=== PATIENT | male | born 1955 | race Caucasian/White ===

== ENCOUNTER 2016-04-27 15:16 | Outpatient (CLI) | payer BC | END 2016-04-27 15:17 | disposition home or self-care (01) | DX: S90.32XS Contusion of left foot, sequela (principal) ==

== ENCOUNTER 2017-10-18 10:02 | Outpatient (CLI) | payer BC ==
[2017-10-18 17:45] LABS: BASOPHILS % (AUTO) 0.7 %; EOSINOPHILS # (AUTO) 0.2 10^3/uL (0.0-0.7); EOSINOPHILS % (AUTO) 2.8 %; HGB - HEMOGLOBIN 13.5 g/dL (14.0-18.0); LYMPHOCYTES # (AUTO) 1.5 10^3/uL (1.5-3.5); LYMPHOCYTES % (AUTO) 27.7 %; MEAN CORPUSCULAR HEMOGLOBIN 27.6 pg (27.0-31.0); MEAN CORPUSCULAR HGB CONC 33.4 g/dL (32.0-36.0); MEAN CORPUSCULAR VOLUME 82.4 fL (80.0-94.0); MEAN PLATELET VOLUME 10.2 fL (7.4-11.4); MONOCYTES # (AUTO) 0.4 10^3/uL (0.0-1.0); NEUTROPHILS # (AUTO) 3.3 10^3/uL (1.5-6.6); NEUTROPHILS % (AUTO) 60.8 %; PLT - PLATELET COUNT 188 10^3/uL (130-450); RED BLOOD COUNT 4.89 10^6/uL (4.70-6.10); RED CELL DISTRIBUTION WIDTH 14.8 % (12.0-15.0); WHITE BLOOD COUNT 5.5 x10^3/uL (4.8-10.8)
[2017-10-18 18:44] LABS: ALBUMIN 4.5 g/dL (3.2-5.5); ALBUMIN/GLOBULIN RATIO 1.5 (1.0-2.2); ALKALINE PHOSPHATASE 57 IU/L (42-121); ALT ALANINE AMINOTRANSFERASE 18 IU/L (10-60); AST ASPARTATE AMINOTRANSFERASE 19 IU/L (10-42); BILIRUBIN,TOTAL 0.4 mg/dL (0.2-1.0); BUN - BLOOD UREA NITROGEN 16 mg/dL (6-20); CALCIUM 9.3 mg/dL (8.5-10.3); CARBON DIOXIDE - CO2 26 mmol/L (21-32); CHLORIDE 105 mmol/L (101-111); CHOLESTEROL 127 mg/dL; GFR - MDRD 76 (>89); GLUCOSE 117 mg/dL (70-100); HDL CHOLESTEROL 43 mg/dL; LDL CHOLESTEROL,CALCULATED 69 mg/dL; LDL/HDL RATIO 1.6 (<3.6); SODIUM 137 mmol/L (135-145); TOTAL PROTEIN 7.6 g/dL (6.7-8.2); VLDL CHOLESTEROL 15 mg/dL
== END 2017-10-18 10:03 | disposition home or self-care (01) ==
LOC: LAB.F 10:02
PROVIDERS: ATTEND Physician Assistant
DX: Z12.5 Encounter for screening for malignant neoplasm of prostate (principal); E11.9 Type 2 diabetes mellitus without complications; K21.9 Gastro-esophageal reflux disease without esophagitis; E78.5 Hyperlipidemia, unspecified
CPT/HCPCS: 36415; 80053; 80061; 83721; 84153; 85025

== ENCOUNTER 2018-05-19 14:24 | Outpatient (CLI) | payer BC ==
--- NOTE | 2018-05-19 16:00 | XRAY Report ---
Reason: PAIN IN RIGHT TOES Procedure Date: 05/19/2018 Accession Number: [id number] / [id number] Procedure: XR - Foot 3 View RT CPT Code: FULL RESULT: EXAM: RIGHT FOOT RADIOGRAPHY EXAM DATE: 05/19/2018 03:21 PM. CLINICAL HISTORY: Pain in right toes. COMPARISON: FOOT 3 VIEW LT 04/27/2016 4:04 PM. TECHNIQUE: 3 views. FINDINGS: Bones: Mild inferior calcaneal spurring, minimal posterior calcaneal spurring. No fracture detected. Joints: Normal. No subluxations. Soft Tissues: Normal. No soft tissue swelling. IMPRESSION: No toe fracture, dislocation with significant destructive osseous process. [facility] ADDENDUM: 05/23/2018 09:22 This addendum is to clarify the meaning of the impression of the previous report. The study is negative. There is no toe fracture. There is no dislocation. There is no significant destructive osseous process. Findings remain unchanged.
== END 2018-05-19 14:25 | disposition home or self-care (01) ==
LOC: DI 14:24
PROVIDERS: ATTEND Nurse Practitioner Family
DX: M79.674 Pain in right toe(s) (principal); M77.31 Calcaneal spur, right foot

== ENCOUNTER 2019-03-16 06:57 | Day surgery (SDC) | payer BC ==
[2019-03-16] MEDS ORDERED: fentaNYL 250 MCG/5 ML VIAL IVP ONE (06:58)
[2019-03-16] MEDS ORDERED: MIDAZOLAM 2 MG/2 ML VIAL IVP ONE (06:58)
[2019-03-16] MEDS ORDERED: LACTATED RINGERS 1,000 ML IV ONE (07:09)
[2019-03-16 10:38] VITALS: BP 114/97
== END 2019-03-16 06:58 | disposition home or self-care (01) ==
LOC: SDS 06:57
PROVIDERS: ATTEND Surgery
PROC: 0DJD8ZZ Inspection of Lower Intestinal Tract, Via Natural or Artificial Opening Endoscopic (ICD-10-PCS; principal; 2019-03-16 08:30)
DX: Z12.11 Encounter for screening for malignant neoplasm of colon (principal); K64.8 Other hemorrhoids; Z86.010 Personal history of colon polyps; Z80.8 Family history of malignant neoplasm of other organs or systems
CPT/HCPCS: 45378; J7120

== ENCOUNTER 2021-02-18 02:55 | Outpatient (CLI) | payer BC ==
--- NOTE | 2021-02-18 08:45 | Ultrasound Report ---
PROCEDURE: Abdomen Limited INDICATIONS: ELEVATED LFT'S TECHNIQUE: Real-time scanning was performed of the abdominal and retroperitoneal organs, with image documentatio n. COMPARISON: CT liver 09/01/2007. FINDINGS: Liver: Liver is normal in size and diffusely increased in echogenicity a cyst in the right hepatic l obe measures 0.6 x 0.7 x 0.8 cm. A possible 4 cm hyperechoic lesion is present in the posterior right hepatic lobe that likely corresponds to the lesion seen on prior CT from 09/01/2007, although it is p oorly defined on the current exam due to posterior acoustic attenuation related to hepatic steatosis. Gallbladder: The gallbladder appears normal without gallstones or gallbladder wall thickening. There is no pericholecystic fluid. Sonographic Plunkett sign is negative. Biliary ducts: Intrahepatic bile ducts are non-dilated. Extrahepatic bile duct caliber measures 5 m m. Normal is 6-7 mm or less in diameter, or 10 mm or less post-cholecystectomy. Pancreas: Pancreas is not well-visualized due to bowel gas. Right kidney: Kidney is normal in size and echotexture. Right kidney measures 10.1 cm long. No hyd ronephrosis or nephrolithiasis. A 1.3 x 1.3 cm hyperechoic lesion in the interpolar region of the rig ht kidney could represent a small angiomyolipoma or focal scarring, not definitely seen on the prior CT. Small simple cyst appearing right pelvic cysts measure up to 0.8 cm in size. IVC: Intrahepatic inferior vena cava is patent. Miscellaneous: No free right upper quadrant fluid. IMPRESSION: 1.Diffusely increased hepatic echogenicity is nonspecific, but most commonly encountered in the setti ng of hepatic steatosis. However, other causes of hepatocellular disease are not excluded. Recommend clinical correlation. 2.Hyperechoic lesion measuring approximately 4 cm in the posterior right hepatic lobe is not well def ined on the current exam, but likely corresponds to the previously seen lesion in dislocation on the CT from 09/01/2007 that was previously characterized as a hemangioma. A liver protocol MRI or CT could be obtained to reevaluate this lesion if indicated clinically. 3.Hyperechoic 1.3 cm lesion in the interpolar region of the right kidney is most likely a benign dorian omyolipoma or focal cortical scarring, although this was not seen on the prior CT from 2007. This les ion could also be evaluated at the same time as the liver lesion if follow-up is obtained. Reviewed by: Meir Puga MD on 02/18/2021 8:43 AM PST Approved by: Meir Puga MD on 02/18/2021 8:43 AM PST Station ID: [id number]
== END 2021-02-18 02:56 | disposition home or self-care (01) ==
LOC: DI 02:55
PROVIDERS: ATTEND Internal Medicine
DX: R79.89 Other specified abnormal findings of blood chemistry (principal); R93.2 Abnormal findings on diagnostic imaging of liver and biliary tract; R93.421 Abnormal radiologic findings on diagnostic imaging of right kidney

== ENCOUNTER 2021-03-21 10:56 | Outpatient (CLI) | payer BC | END 2021-03-21 10:57 | disposition home or self-care (01) | LOC: NS 10:56 | PROVIDERS: ATTEND Internal Medicine | DX: E11.9 Type 2 diabetes mellitus without complications (principal); K76.0 Fatty (change of) liver, not elsewhere classified; Z71.3 Dietary counseling and surveillance; Z71.89 Other specified counseling; Z68.30 Body mass index [BMI] 30.0-30.9, adult | CPT/HCPCS: 97802 ==

== ENCOUNTER 2023-05-24 15:58 | Outpatient (CLI) | payer BC ==
--- NOTE | 2023-05-25 11:51 | Ultrasound Report ---
PROCEDURE: Testicle INDICATIONS: TESTICULAR PAIN TECHNIQUE: Real-time scanning was performed of the scrotum and testicles, with image documentation. Color and p ulse Doppler interrogation was performed of both testicles. COMPARISON: None. FINDINGS: Right: Testicle is normal in size at 4.2 x 2.1 x 3 cm, and homogenous in echotexture. A few tiny an echoic epididymal head cysts measuring less than 5 mm. Epididymis is otherwise normal in overall size and morphology. No hydrocele. No varicoceles. Overlying scrotal skin is normal in thickness. Left: Testicle is normal in size at 4.1 x 2.4 x 3.1 cm, and homogeneous in echotexture. Epididymis is normal in overall size and morphology. No hydrocele. No varicoceles. Overlying scrotal skin is n ormal in thickness. Doppler: Color and pulse Doppler demonstrate normal and symmetric arterial flow in both testicles. Groin: Partially reducible fat-containing right inguinal hernia with neck measuring 2.1 cm. Nonreduci ble fat-containing left inguinal hernia with neck measuring 2.5 cm. IMPRESSION: 1.Normal sonographic appearance of the bilateral testicles. Specifically, bilateral testicles are sym metric in size with no sonographic findings to suggest testicular torsion. 2.Partially reducible fat-containing right inguinal hernia with neck measuring 2.1 cm. 3.Nonreducible fat-containing left inguinal hernia with neck measuring 2.5 cm. Reviewed by: Kathy Samuel MD on 05/25/2023 11:50 AM PDT Approved by: Kathy Samuel MD on 05/25/2023 11:50 AM PDT Station ID: [id number]
== END 2023-05-24 15:59 | disposition home or self-care (01) ==
LOC: DI 15:58
PROVIDERS: ATTEND Internal Medicine
DX: N50.819 Testicular pain, unspecified (principal); K40.20 Bilateral inguinal hernia, without obstruction or gangrene, not specified as recurrent

== ENCOUNTER 2023-09-09 11:36 | Outpatient (CLI) | payer BC ==
--- NOTE | 2023-09-09 17:16 | XRAY Report ---
PROCEDURE: Chest 2V INDICATIONS: COCCIDIOMYCOSIS TECHNIQUE: 2 views of the chest were acquired. COMPARISON: None. FINDINGS: Surgical changes and devices: None. Lungs and pleura: No pleural effusions or pneumothorax. Airspace opacity in left upper lung field is seen suggestive of left upper lobe infiltrate. Mediastinum: Mediastinal contours appear normal. Heart size is normal. Bones and chest wall: No suspicious bony lesions. Overlying soft tissues appear unremarkable. IMPRESSION: Small to moderate-sized left upper lobe infiltrate. No pleural effusion or pneumothorax. Reviewed by: Fred Colon MD on 09/09/2023 5:15 PM PDT Approved by: Fred Colon MD on 09/09/2023 5:15 PM PDT Station ID: [id number]
== END 2023-09-09 11:37 | disposition home or self-care (01) ==
LOC: DI 11:36
PROVIDERS: ATTEND Internal Medicine
DX: B38.9 Coccidioidomycosis, unspecified (principal); R91.8 Other nonspecific abnormal finding of lung field

== ENCOUNTER 2023-10-01 12:54 | Outpatient (CLI) | payer SELFPAY ==
--- NOTE | 2023-10-01 14:09 | CT Report ---
PROCEDURE: CT heart coronary calcium scoring without contrast TECHNIQUE: MDCT non-contrast cardiac gated images were obtained from the lorin through the inferior margin of the heart. Calcium score was obtained by post-processing with external software. Automated exposure control was used to reduce patient radiation dose. INDICATION: CAD screening, low or intermediate risk COMPARISON: None FINDINGS: Image quality: Excellent Agatston method: Total calcium score: 50.8 L main: 16.8 LAD: 2.3 LCX: 15.2 RCA: 16.5 Heart findings: Mitral annular calcifications: No significant calcifications. Aortic valve: No significant valvular calcifications. Chambers: No significant enlargement on this non-dynamic study. Pericardium: No effusion. Other findings (note the chest is incompletely imaged on this limited non-contrast study): Lungs and pleura: No pleural effusion. No actionable lung nodules. Mediastinum: No pathologic lymphadenopathy. Upper abdomen: Partially seen, unremarkable. Bones: No acute or suspicious abnormality. IMPRESSION: Coronary calcium scores as above. Incidentals: 2.8 cm lung mass, extreme left lung base posteriorly. Recommend CT chest. An urgent findings note was provided to the Department of radiology to contact the referring provider 's office regarding an unexpected finding of a lung mass at the time of dictation. Coronary artery calcium scores have been identified as an independent risk factor for future acute co ronary syndromes and correlate with the quantity of coronary atherosclerotic plaque. However, they do not correlate directly with the degree of stenosis. A low score does not exclude a significant coron ronn artery stenosis. Risk of future coronary events should be assessed with individual patient risk factors and medical hi story. Consider correlation with risk percentiles using the ARREDONDO (Multi-Ethnic Study of Atheroscleros is) calculator. CAC-DRS Categories: A0: 0, very low risk, consider repeat coronary calcium study every 3-7 years for surveillance. A1: 1-99, mildly increased risk, consider moderate-intensity statin A2: 100-299: moderately increased risk, consider moderate to high-intensity statin + ASA 81mg A3: >300: moderately to severely increased risk, consider high-intensity statin + ASA 81mg Reviewed by: Jj Galindo MD on 10/01/2023 2:08 PM PDT Approved by: Jj Galindo MD on 10/01/2023 2:08 PM PDT Station ID: [id number]
== END 2023-10-01 12:55 | disposition home or self-care (01) ==
LOC: DI 12:54
PROVIDERS: ATTEND Internal Medicine
DX: I10 Essential (primary) hypertension (principal); R91.8 Other nonspecific abnormal finding of lung field

== ENCOUNTER 2023-10-22 14:59 | Outpatient (CLI) | payer BC ==
[2023-10-22] MEDS ORDERED: iohexoL-300 100 ML VIAL ONE (16:36)
[2023-10-22] MEDS: iohexoL-300 100 ML VIAL IVP ONE (17:36)
--- NOTE | 2023-10-22 17:53 | CT Report ---
PROCEDURE: Chest W INDICATIONS: LUNG MASS CONTRAST: 100ml omni 300 TECHNIQUE: After the administration of intravenous contrast, a CT scan of the chest was performed. Images were recorded and evaluated at appropriate window settings. Reformats: axial MIP of the chest, coronal and sagittal. For radiation dose reduction, the following was used: automated exposure control, adjustme nt of mA and/or kV according to patient size. COMPARISON: CT calcium score dated 10/01/2023. FINDINGS: Image quality: Diagnostic. Chest wall and lower neck: No thyroid nodule which requires sonographic follow up. No breast mass. No axillary or supraclavicular adenopathy by size. Lungs and pleura: Masslike consolidation involving lateral aspect of left upper lobe measures up to 4 .4 x 2.8 cm in largest transverse and AP dimension image 4 image 33 and extending to anterolateral pl eura of left upper lobe.. Adjacent atelectasis is seen. There is also a masslike consolidation involving posterior inferior aspect of left lower lobe and bryan sures up to 3 x 3.3 cm in size series 4 image 66 with adjacent atelectasis. In addition, there are multiple solid nodules seen in anterior medial aspect of left upper lobe and m easures up to 5 mm in size series 4 image 35. Ill-defined scarring/atelectasis in posterior aspect of left lingular segment is seen with associated mild bronchiectasis. No pleural effusion or pneumothorax. Mediastinum: Heart size is normal. No pericardial effusion. No large vessel abnormality. No mediastin al adenopathy by size criteria. Bones: No aggressive osseous abnormality. Upper Abdomen: Moderate to severe hepatic steatosis is seen.. IMPRESSION: 1. Masslike consolidations are noted in left upper and lower lobes as described above. Finding could still represent infectious processes. Primary or metastatic malignant process cannot be excluded. Con medical dosimetrist biopsy of these lesions for more definitive diagnosis. 2. Additional subcentimeter solid nodules are seen in anterior medial aspect of left upper lobe. No s uspicious right pulmonary nodule is seen. Scattered atelectasis in posterior aspect of left lingular segment and left lower lobe. No pleural effusion or pneumothorax. 3. No gross mediastinal or hilar lymphadenopathy. Reviewed by: Fred Colon MD on 10/22/2023 5:51 PM PDT Approved by: Fred Colon MD on 10/22/2023 5:51 PM PDT Station ID: [id number]
== END 2023-10-22 15:00 | disposition home or self-care (01) ==
LOC: LAB 14:59
PROVIDERS: ATTEND Internal Medicine
DX: Z79.899 Other long term (current) drug therapy (principal); R91.8 Other nonspecific abnormal finding of lung field; J98.11 Atelectasis
CPT/HCPCS: 36415; 71260; 82565; Q9967